=== PATIENT | female | born 1935 | race Caucasian/White ===

== ENCOUNTER → 2017-06-30 | Outpatient (CLI) | payer MEDICARE ==
--- NOTE | 2017-06-30 10:30 | KCIC ---
EXAM: Lumbar spine MRI without contrast. HISTORY: Back pain. Inability to bear weight. TECHNIQUE: Multiplanar, multisequence magnetic resonance imaging of the lumbar spine was performed without contrast. COMPARISON: 03/16/2015 FINDINGS: There is a mild to moderate subacute compression fracture of L4 with approximately one third decreased in vertebral body height. The fracture line extension along the inferior endplate. There is no significant retropulsion of the cortex at this level. There is a mild to moderate compression fracture of L3. There is slight edema along the superior endplate at this level which may be due to a late subacute fracture or reactive degenerative change. There is 3 mm retropulsion of the posterior superior cortex into the central canal at this level. There is edema along the posterior superior endplate of L5, likely due to the combination of degenerative change and Schmorl's node formation. There is S-shaped lumbar scoliosis, with levocurvature centered at the upper lumbar levels and dextrocurvature centered at the lower lumbar levels. There is artifact overlying both hips possibly due to arthroplasties or fixation instrumentation. There is grade 1 anterolisthesis of L4 on L5 and L5 on S1. There is slight retrolisthesis of L3 on L4. There is advanced degenerative endplate remodeling with disc space narrowing, osteophytosis and Schmorl's node formation at all levels. There is fluid and gas within the disc spaces at multiple levels, degenerative in etiology. 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 There is epidural lipomatosis. The conus terminates at L1-L2. There are multiple left renal cysts. At T12-L1, there is a right paracentral disc protrusion and annular tear and right foraminal to lateral disc protrusion and endplate osteophytosis superimposed on a disc bulge and endplate remodeling. There is mild right greater than left facet arthropathy. There is hypertrophy of the ligamentum flavum. There is moderate right and mild left foraminal stenosis. At L1-L2, there is a right paracentral disc protrusion and annular tear superimposed on a right lateral predominant disc bulge and endplate osteophytosis. There is mild facet arthropathy. There is moderate right and mild left foraminal stenosis. At L2-L3, there is a right foraminal to extraforaminal disc protrusion with slight superior extrusion superimposed on a disc bulge and endplate osteophytosis. There is moderate to severe facet arthropathy. There is hypertrophy of the ligamentum flavum. There is moderate right and mild left foraminal stenosis. There is moderate central canal stenosis. At L3-L4, there is a left foraminal to extra foraminal disc protrusion with slight superior extrusion superimposed on a disc bulge and right lateral predominant endplate osteophytosis. There is moderate right and severe left facet arthropathy. There is hypertrophy of the ligamentum flavum. There is mild right and moderate to severe left foraminal stenosis. There is mild to moderate central canal stenosis. At L4-L5, there is a disc bulge and endplate osteophytosis. There is moderate right and severe left facet arthropathy. There is hypertrophy of the ligamentum flavum. There is mild right and severe left foraminal stenosis. There is moderate central canal stenosis. At L5-S1, there is a disc bulge and endplate remodeling. There is severe facet arthropathy. There is moderate bilateral foraminal stenosis. IMPRESSION: 1. Mild to moderate subacute compression fracture of L4, without significant retropulsion of the cortex into the central canal. 2. Mild to moderate compression fracture of L3, with slight edema along the superior endplate possibly due to a late subacute etiology or chronic fracture with reactive degenerative endplate change. 3. Severe multilevel degenerative change throughout the lower thoracic and lumbar spine, resulting in significant stenosis at the aforementioned levels. 4. Lumbar scoliosis and multilevel listhesis. 5. 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 5. Epidural lipomatosis. Electronically signed by: Mary Ramirez MD (06/30/2017 10:27 AM) [email or web address]
== END | disposition home or self-care (01) ==
LOC: KCIC MRI 09:15
PROVIDERS: ATTEND Physician Assistant
DX: M48.56XA Collapsed vertebra, not elsewhere classified, lumbar region, initial encounter for fracture (principal); M51.36 Other intervertebral disc degeneration, lumbar region; M48.06 Spinal stenosis, lumbar region; E88.2 Lipomatosis, not elsewhere classified; M41.86 Other forms of scoliosis, lumbar region
CPT/HCPCS: 72148

== ENCOUNTER → 2018-07-03 | Outpatient (CLI) | payer MEDICARE ==
--- NOTE | 2018-07-03 14:41 | KCIC ---
MRI of the lumbar spine without contrast 07/03/2018 CLINICAL HISTORY: Low back pain which radiates down the right leg. TECHNIQUE: Unenhanced T1-weighted and T2-weighted sagittal and axial and inversion recovery sagittal images of the lumbar spine were obtained. FINDINGS: Comparison study is dated 06/30/2017. Mild S-shaped curvature of the thoracolumbar spine is seen. Degenerative signal changes are seen involving all of the disks of the lumbar spine. Degenerative signal changes are seen within the marrow surrounding these discs. Loss of height of the L1-2 and L2-3 discs is noted. Old compression fractures of the L3, L4 and L5 vertebral bodies are seen. Retropulsion of bone fragments into the central spinal canal is seen. There is no MRI evidence of an acute compression fracture involving the lumbar vertebrae. The conus medullaris is normal morphology, position, and signal characteristics. At the L1-2 disc space there is a mild to moderate generalized disc bulge. Degenerative changes are seen involving the facet joints bilaterally. There is mild ligamentum flavum hypertrophy bilaterally. These findings do not result in significant central spinal canal or neural foraminal stenosis. At the L2-3 disc space there is a moderate generalized disc bulge. Degenerative changes are seen involving the facet joints bilaterally. There is mild to moderate ligamentum flavum hypertrophy bilaterally. There is prominence of the posterior epidural fat. These findings when combined result in moderate central spinal canal stenosis. Mild to moderate right neural foraminal stenosis is seen. The left neural foramen is patent. At the L3-4 disc space there is a mild to moderate generalized disc bulge. Degenerative changes are seen involving the facet joints bilaterally. There is moderate ligamentum flavum hypertrophy bilaterally. There is prominence of the posterior epidural fat. These findings when combined result in mild central spinal canal stenosis. Mild to moderate left greater than right neural foraminal stenosis is seen. At the L4-5 disc space there is a moderate generalized disc bulge. Degenerative changes are seen involving the facet joints bilaterally. There is moderate ligamentum flavum hypertrophy bilaterally. These findings when combined result in moderate central spinal canal stenosis. Moderate to severe left greater than right neural foraminal stenosis is seen. At the L5-S1 disc space there is a moderate generalized disc bulge. Degenerative changes are seen involving the facet joints bilaterally. These findings do not result in significant central spinal canal stenosis. No neural foraminal stenosis is seen. The degenerative changes have not significantly changed since the previous study. IMPRESSION: The changes of degenerative disc disease are seen throughout the lumbar spine. These findings result in multilevel central spinal canal and neural foraminal stenosis of varying severity as outlined above. Electronically signed by: Kayden Bueno MD (07/03/2018 2:37 PM) [email or web address]
== END | disposition home or self-care (01) ==
LOC: KCIC MRI 12:48
PROVIDERS: ATTEND Family Medicine
DX: M51.36 Other intervertebral disc degeneration, lumbar region (principal); M48.061 Spinal stenosis, lumbar region without neurogenic claudication; G89.29 Other chronic pain
CPT/HCPCS: 72148

== ENCOUNTER → 2021-06-10 | Outpatient (CLI) | payer MEDICARE ==
--- NOTE | 2021-06-11 10:00 | KCIC ---
XR THORACIC SPINE 3VIEWS, XR LUMBAR SPINE 4+V 06/11/2021 9:41 AM Indication: Acute bilateral thoracic pain, lumbar spinal stenosis Comparison: Single series from the Lumbar spine MRI 06/30/2017 Technique: AP, lateral, and swimmer's views of the thoracic spine. AP, lateral, lumbosacral, and obli que views of the lumbar spine. Findings: Evaluation thoracic spine is severely limited by technique. There is no significant vertebral body he ight loss or malalignment. There is disc space narrowing and flowing marginal osteophytosis most prom inent at the lower thoracic spine. There are 5 nonrib-bearing vertebral bodies in lumbar spine. There is mild concave morphology to the superior endplate of the L3 vertebral body, similar to the comparison MRI. There is height loss of th e inferior endplate of the L4 and superior endplate of L4 vertebral body also similar to the MRI. The re is disc space narrowing throughout the lumbar spine with near complete disc space loss at the L1-L 2 level. Marginal osteophytosis is present throughout the lumbar spine. There is moderate to severe f acet joint hypertrophy with multilevel narrowing of the bilateral facet joints. Overall these changes appear similar to those of comparison MRI. Impression: 1. Limited radiographs of the thoracic spine without definite evidence of compression abnormality. If there is high clinical suspicion, MRI of the thoracic spine is more sensitive. 2. Degenerative disc disease of the lumbar spine overall similar to comparison MRI dated 06/30/2017. Electronically signed by: Ethan Alvarez (06/11/2021 9:57 AM) [id number]
== END ==
LOC: KCIC 15:04
PROVIDERS: ATTEND Physician Assistant Medical
DX: M47.816 Spondylosis without myelopathy or radiculopathy, lumbar region (principal); M51.36 Other intervertebral disc degeneration, lumbar region; M48.05 Spinal stenosis, thoracolumbar region; M25.78 Osteophyte, vertebrae
CPT/HCPCS: 72072; 72110